=== PATIENT | male | born 1975 | race Caucasian/White ===

== ENCOUNTER → 2017-03-06 | Outpatient (REF) | LOC: WSOH 08:39 | DX: Z00.00 Encounter for general adult medical examination without abnormal findings (principal) ==

== ENCOUNTER → 2017-08-11 | Outpatient (CLI) | payer BC | LOC: COL.PUL 10:57 | DX: J45.990 Exercise induced bronchospasm (principal) | CPT/HCPCS: J7674 ==

== ENCOUNTER 2023-10-12 13:15 | Day surgery (SDC) | payer BC ==
[~2023-10-12] VITALS: Ht 177.8 cm; Wt 76.4 kg
[~2023-10-12 13:15] MED LIST: LR 1,000 ML IV SCH; Ondansetron 4 MG/2 ML VIAL IV PRN
[2023-10-12 13:43] VITALS: BP 143/96; PULSE 60; TEMP 97.7
[2023-10-12] MEDS ORDERED: PRINIVIL20 MG PO (13:47)
[2023-10-12] MEDS ORDERED: PROAIR HFA0.09 MG/AC IH (13:48)
[2023-10-12 15:45] VITALS: BP 128/88; PULSE 63; TEMP 97
--- NOTE | 2023-10-12 15:45 | NUR ---
PATIENT AMBULATED TO CHAIR WITH STEADY GAIT, ASSIST OF 2. ALERT AND AWAKE. DENIES PAIN, NAUSEA AND SHORTNESS OF BREATH. BREATHING REGULAR AND UNLABORED ON ROOM AIR. SKIN WARM AND DRY. IV IN PLACE. NURSE HANDOFF COMPLETED IN ROOM. SEE CHART FOR VITAL SIGNS. PATIENT HAD APPLE JUICE AND A MUFFIN. BOTH FOOD AND DRINK TOLERATED WELL. CALL LIGHT IN REACH.
[2023-10-12 15:55] VITALS: BP 119/83; PULSE 69
[2023-10-12 16:00] VITALS: BP 132/83; PULSE 57
--- NOTE | 2023-10-12 16:15 | NUR ---
PATIENT STATED HE SPOKE WITH FOLLOWING THE PROCEDURE. 1608: DISCHARGE TEACHING COMPLETED WITH PRINTED EDUCATION AND INSTRUCTIONS SENT HOME WITH PATIENT. PATIENT VERBALIZED UNDERSTANDING OF TEACHING. 1610: IV REMOVED. GAUZE AND COBAN PLACED OVER SITE. 1615: PATIENT DISCHARGED HOME WITH [facility].
== END 2023-10-12 16:15 | disposition home or self-care (01) ==
LOC: SDCO 13:15
DX: Z12.11 Encounter for screening for malignant neoplasm of colon (principal); R19.5 Other fecal abnormalities; K64.0 First degree hemorrhoids
CPT/HCPCS: J2704; J7120